=== PATIENT | female | born 1980 | race American Indian/Alaskan Native ===

== ENCOUNTER 2017-08-11 11:25 | Emergency (ER) | payer OTHER ==
[2017-08-11 11:42] VITALS: O2SAT 98
--- NOTE | 2017-08-11 12:35 | C.PDOC ---
History Of Present Illness 37 y/o female with hx newly diagnosed lupus, (not on any medications), vertigo, asthma and eczema, c/o diffuse myalgias yesterday, and today with roller coaster feeling in head, off balance with ambulation, and fell today. did not hurt herself or hit head when she fell. . pt sts it does not feel like her usual no ocp. vertigo. pt also c/o left sided headache in forehead area, with photophobia; pt reports similar headaches in past, not as intense. pt also c/o pain in left leg today, feels like cramps per patient. . denies cp and sob. Time Seen by Provider: 08/11/17 11:59 Chief Complaint (Nursing): Dizziness/Lightheaded History Per: Patient History/Exam Limitations: no limitations Onset/Duration Of Symptoms: Days Current Symptoms Are (Timing): Still Present Activity At Onset Of Symptoms: Standing Past Medical History Reviewed: Historical Data, Nursing Documentation, Vital Signs Vital Signs: Last Vital Signs Temp 98.6 F 08/11/17 13:53 Pulse 81 08/11/17 13:53 Resp 16 08/11/17 13:53 BP 112/79 08/11/17 13:53 Pulse Ox 98 08/11/17 18:35 - Medical History PMH: Asthma Surgical History: No Surg Hx Family History: States: No Known Family Hx - Social History Hx Tobacco Use: No Hx Alcohol Use: Yes Hx Substance Use: No - Immunization History Hx Tetanus Toxoid Vaccination: No Hx Influenza Vaccination: No Hx Pneumococcal Vaccination: No Review Of Systems Constitutional: Negative for: Fever, Chills Eyes: Positive for: Vision Change (photophobia) ENT: Negative for: Throat Pain Cardiovascular: Negative for: Chest Pain, Palpitations Respiratory: Negative for: Shortness of Breath Musculoskeletal: Positive for: Leg Pain, Other (Myalgia) Skin: Negative for: Rash Neurological: Positive for: Headache, Dizziness. Negative for: Weakness, Numbness, Confusion Physical Exam - Physical Exam Additional Physical Exam Comments: Constitutional: No acute distress. WDWN. Head: Normocephalic. Tenderness to left forehead Eyes: PERRL. EOMI. no nystagmus ENT: Moist mucous membranes. Neck: Supple. Cardiovascular: Regular rate and rhythm. Chest: No tenderness. Respiratory: Clear to auscultation bilaterally. GI: Soft. Nontender. Nondistended. Normoactive bowel sounds. No rebound. No guarding. Back: No CVA and no mid-line tenderness. Musculoskeletal: no swelling of extremities. +left calf tenderness Skin: No rash. Neurologic: Alert and oriented,normal cranial nerves. Normal motor strength, normal sensation. . Slightly unsteady when standing. ED Course And Treatment - Laboratory Results Result Diagrams: 08/11/17 12:48 08/11/17 12:48 O2 Sat by Pulse Oximetry: 98 (RA) Pulse Ox Interpretation: Normal Medical Decision Making Medical Decision Making: pt with unilateral headache, and dizziness; eval with head ct, labs, reglan and re-assess. get doppler for left leg pain. 220 pm pt reports headache decreased, dizziness resolved, steady gait. head ct neg , doppler neg for dvt. will give toradol and re-eval. 320 pm pt feeling well after toradol, no more headache, no dizziness, wants to go home, will d/c, recommend neuro outpatient f/u. Disposition Counseled Patient/Family Regarding: Studies Performed, Diagnosis - Disposition Referrals: Oswald Almanza MD [Staff Provider] - Disposition: HOME/ ROUTINE Disposition Time: 15:24 Condition: IMPROVED Additional Instructions: Please follow up with your pmd and neurologist Dr Almanza. Take Tylenol or Ibuprofen for pain, Meclizine for dizziness. Return to ER for any worsening symptoms. Instructions: Migraine Headache (ED), Dizziness (ED) Forms: [facility] (Macedonian), General Discharge Instructions - Clinical Impression Clinical Impression: Dizziness, Migraine - PA / MONITOR TECH / Resident Statement MD/DO has reviewed & agrees with the documentation as recorded. - Scribe Statement The provider has reviewed the documentation as recorded by the Stefibjeanne Marcum All medical record entries made by the Jake were at my direction and personally dictated by me. I have reviewed the chart and agree that the record accurately reflects my personal performance of the history, physical exam, medical decision making, and the department course for this patient. I have also personally directed, reviewed, and agree with the discharge instructions and disposition.
[2017-08-11 12:52] LABS: BASO % 0.5 % (0.0-2.0); EOS # 0.1 K/uL (0.0-0.7); EOS % 2.4 % (0.0-4.0); HEMATOCRIT 41.1 % (34.0-47.0); LYMPH # 0.9 K/uL (1.0-4.3); LYMPH % 17.2 % (20.0-40.0); MEAN CELL VOLUME 82.9 fL (81.0-99.0); MEAN CORPUSCULAR HEMOGLOBIN 27.4 pg (27.0-31.0); MONO # 0.6 K/uL (0.0-0.8); NRBC % 0.1 % (0.0-2.0); RED CELL DISTRIBUTION WIDTH 15.2 % (11.5-14.5); WHITE BLOOD COUNT 5.4 K/uL (4.8-10.8)
[2017-08-11 13:06] LABS: ALKALINE PHOSPHATASE 54 U/L (38-126); ALT/SGPT 37 U/L (9-52); AST/SGOT 23 U/L (14-36); BILIRUBIN,TOTAL 1.1 mg/dL (0.2-1.3); BLOOD UREA NITROGEN 8 mg/dL (7-17); CALCIUM 8.6 mg/dl (8.6-10.4); CARBON DIOXIDE 24 mmol/L (22-30); CHLORIDE 100 mmol/L (98-107); GFR AFRICAN-AMERICAN > 60; GLUCOSE,RANDOM 91 mg/dL (65-105); POTASSIUM 3.9 mmol/L (3.6-5.2); SODIUM 131 mmol/L (132-148); TOTAL PROTEIN 8.8 g/dL (6.3-8.3)
[2017-08-11 13:07] LABS: ALB/GLOB RATIO 0.9 (1.0-2.1)
--- NOTE | 2017-08-11 13:27 | CT ---
PROCEDURE: CT HEAD WITHOUT CONTRAST. HISTORY: left sided headache, photophobia, feels off balance COMPARISON: None available. TECHNIQUE: Axial computed tomography images were obtained through the head/brain without intravenous contrast. Radiation dose: Total exam DLP = 890.65 mGy-cm. This CT exam was performed using one or more of the following dose reduction techniques: Automated exposure control, adjustment of the mA and/or kV according to patient size, and/or use of iterative reconstruction technique. FINDINGS: HEMORRHAGE: No intracranial hemorrhage. BRAIN: No mass effect or edema. No atrophy or chronic microvascular ischemic changes. VENTRICLES: No hydrocephalus. CALVARIUM: Unremarkable. PARANASAL SINUSES: Unremarkable as visualized. No significant inflammatory changes. MASTOID AIR CELLS: Unremarkable as visualized. No inflammatory changes. OTHER FINDINGS: None. IMPRESSION: No acute intracranial pathology identified.
[2017-08-11 13:33] LABS: RBC URINE 2 /hpf (0-3); URINE BACTERIA OCC (<OCC); URINE BILIRUBIN NEGATIVE (NEGATIVE); URINE BLOOD 1+ (NEGATIVE); URINE COLOR Yellow (YELLOW); URINE GLUCOSE (UA) NORMAL (Normal); URINE KETONE NEGATIVE (NEGATIVE); URINE LEUKOCYTE ESTERASE TRACE Leu/uL (Negative); URINE PROTEIN NEGATIVE (NEGATIVE); URINE UROBILINOGEN NORMAL mg/dL (0.2-1.0); WBC URINE 1 /hpf (0-5)
[2017-08-11 13:54] VITALS: BP 112/79; PULSE 81; RESP 16; TEMP 98.6
--- NOTE | 2017-08-11 14:01 | VASCLAB ---
PROCEDURE: Left Lower Extremity Venous Duplex Exam. HISTORY: left calf pain PRIORS: None. TECHNIQUE: Left common femoral, femoral, popliteal and posterior tibial, peroneal and great saphenous veins were evaluated. Flow was assessed with color Doppler, compressibility, assessment of phasic flow and augmentation response. Report prepared by SONYA Fuentes, RVT FINDINGS: LEFT: 1. Common Femoral Vein: 1.1. Compressibility - Fully compressible: Thrombus - None : Flow - Phasic: Augmentation -Normal: Reflux - None. 2. Femoral Vein: 2.1. Compressibility - Fully compressible: Thrombus - None: Flow - Phasic: Augmentation -Normal: Reflux - None. 3. Popliteal Vein: 3.1. Compressibility - Fully compressible: Thrombus - None: Flow - Phasic: Augmentation -Normal: Reflux - None. 4. Posterior Tibial Vein: 4.1. Compressibility - Fully compressible: Thrombus - None: Flow - Phasic: Augmentation -Normal: Reflux - None. 5. Peroneal Vein: 5.1. Compressibility - Fully compressible: Thrombus - None: Flow - Phasic: Augmentation -Normal: Reflux - None. 6. Great Saphenous Vein: 6.1. Compressibility - Fully compressible: Thrombus - None: Flow - Phasic: Augmentation - Normal: Reflux - None. OTHER FINDINGS: IMPRESSION: No evidence of deep or superficial vein thrombosis of the left lower extremity with excellent venous flow. Normal valve function noted of the left side. Normal venous flow noted in the right common femoral vein.
== END 2017-08-11 15:34 | disposition home or self-care (01) ==
LOC: C.ER 11:25
DX: G43.909 Migraine, unspecified, not intractable, without status migrainosus (principal); R42 Dizziness and giddiness; M32.9 Systemic lupus erythematosus, unspecified
CPT/HCPCS: 70450; 80053; 81001; 84703; 85025; 93971; 96374; 99285; J1885; J2765

== ENCOUNTER 2018-07-08 10:21 | Emergency (ER) | payer OTHER ==
[2018-07-08 10:29] VITALS: BMI 48.2
[2018-07-08 10:30] VITALS: TEMP 98.1; O2SAT 100
[2018-07-08 11:37] LABS: HCG,QUALITATIVE URINE NEGATIVE (NEGATIVE)
[2018-07-08 11:41] LABS: SQUAMOUS EPITHIAL 7 /hpf (0-5); URINE BILIRUBIN NEGATIVE (NEGATIVE); URINE BLOOD NEGATIVE (NEGATIVE); URINE CLARITY Hazy (Clear); URINE COLOR Yellow (YELLOW); URINE GLUCOSE (UA) NORMAL (Normal); URINE LEUKOCYTE ESTERASE NEG Leu/uL (Negative); URINE PROTEIN 1+ mg/dL (NEGATIVE); URINE UROBILINOGEN NORMAL mg/dL (0.2-1.0)
[2018-07-08] MEDS ORDERED: Sodium Chloride 0.9% 1,000 ML IV ONE (11:42)
--- NOTE | 2018-07-08 11:54 | C.PDOC ---
History Of Present Illness 38 y/o female with history of Lupus presents to ED with c/o abdominal pain for 1 month worse today with noticed lump on mid abdomen. Patient reports minimal pain relief with motrin. Patient denies fever, chills, nausea, vomiting, diarrhea, recent travel, dysuria, hematuria or any other complaints at this time. Time Seen by Provider: 07/08/18 11:09 Chief Complaint (Nursing): Abdominal Pain History Per: Patient History/Exam Limitations: no limitations Onset/Duration Of Symptoms: Days Current Symptoms Are (Timing): Still Present Past Medical History Reviewed: Historical Data, Nursing Documentation, Vital Signs Vital Signs: Last Vital Signs Temp 98.1 F 07/08/18 10:26 Pulse 76 07/08/18 10:26 Resp 18 07/08/18 10:26 BP 133/83 07/08/18 10:26 Pulse Ox 100 07/08/18 10:26 - Medical History PMH: Asthma Surgical History: No Surg Hx Family History: States: No Known Family Hx - Social History Hx Tobacco Use: No Hx Alcohol Use: Yes Hx Substance Use: No - Immunization History Hx Tetanus Toxoid Vaccination: No Hx Influenza Vaccination: No Hx Pneumococcal Vaccination: No Review Of Systems Constitutional: Negative for: Fever, Chills Cardiovascular: Negative for: Chest Pain Respiratory: Negative for: Cough, Shortness of Breath Gastrointestinal: Positive for: Abdominal Pain. Negative for: Nausea, Vomiting, Diarrhea Genitourinary: Negative for: Dysuria, Hematuria Skin: Negative for: Rash Physical Exam - Physical Exam Appears: Non-toxic, No Acute Distress Skin: Warm, Dry, No Rash Head: Atraumatic, Normacephalic Eye(s): bilateral: Normal Inspection Oral Mucosa: Moist Neck: Normal ROM, Supple Cardiovascular: Rhythm Regular Respiratory: Normal Breath Sounds, No Rales, No Rhonchi, No Wheezing Gastrointestinal/Abdominal: Bowel Sounds, Soft, No Guarding, No Rebound, Hernia (above umbilicus tender on palpation, reduceable) Back: No CVA Tenderness Neurological/Psych: Oriented x3, Normal Speech, Normal Cognition ED Course And Treatment - Laboratory Results Result Diagrams: 07/08/18 11:55 07/08/18 11:55 O2 Sat by Pulse Oximetry: 100 (RA) Pulse Ox Interpretation: Normal Medical Decision Making Medical Decision Making: Plan: CT abd/pelvis w/o contrast, IV fluids IMPRESSION: Hepatomegaly. There is a small fat containing umbilical hernia and slightly larger more inferior ventral wall hernia also containing fat. Urinary bladder incompletely distended which in presumably accounts for thick- walled appearance however correlation with urinalysis recommended to exclude cystitis. Labs unremarkable. Progress: 01:45pm- Discussed results with patient, agrees to follow up with PMD in 2 days for possible surgery referral. Patient still c/o pain but decline pain medication, states she will take Pain medication she has at home. Disposition Counseled Patient/Family Regarding: Studies Performed, Diagnosis, Need For Followup - Disposition Disposition: HOME/ ROUTINE Disposition Time: 14:02 Condition: STABLE Additional Instructions: AURORA ROSENBERG, thank you for letting us take care of you today. Your provider was Ekaterina Schroeder MD and you were treated for LUMP ON STOMACH. The emergency medical care you received today was directed at your acute symptoms. If you were prescribed any medication, please fill it and take as directed. It may take several days for your symptoms to resolve. Return to the Emergency Department if your symptoms worsen, do not improve, or if you have any other problems. Please contact your doctor for follow up appointment for further evaluation including possible referral to a surgeon. Bring any paperwork you were given at discharge with you along with any medications you are taking to your follow up visit. Our treatment cannot replace ongoing medical care by a primary care provider outside of the emergency department. Thank you for allowing the [facility] team to be part of your care today. Instructions: Abdominal Hernia (DC) Forms: [facility] (Maldivian), General Discharge Instructions - POA Present On Arrival: None - Clinical Impression Clinical Impression: Hernia of abdominal wall - Scribe Statement The provider has reviewed the documentation as recorded by the Jake Marcum All medical record entries made by the Stefibjeanne were at my direction and personally dictated by me. I have reviewed the chart and agree that the record a ccurately reflects my personal performance of the history, physical exam, medical decision making, and the department course for this patient. I have also personally directed, reviewed, and agree with the discharge instructions and disposition.
[2018-07-08 12:06] LABS: BASO % 0.9 % (0.0-2.0); EOS # 0.1 K/uL (0.0-0.7); EOS % 2.6 % (0.0-4.0); HEMOGLOBIN 12.6 g/dL (11.0-16.0); LYMPH # 1.4 K/uL (1.0-4.3); LYMPH % 30.6 % (20.0-40.0); MEAN CELL VOLUME 84.9 fL (81.0-99.0); MEAN PLATELET VOLUME 8.9 fL (7.2-11.7); MONO # 0.4 K/uL (0.0-0.8); MONO % 8.5 % (0.0-10.0); NEUT # 2.7 K/uL (1.8-7.0); NEUT % 57.4 % (50.0-75.0); NRBC % 0.1 % (0.0-2.0); RBC 4.5 Mil/uL (3.80-5.20); RED CELL DISTRIBUTION WIDTH 15.5 % (11.5-14.5); WHITE BLOOD COUNT 4.7 K/uL (4.8-10.8)
[2018-07-08 12:23] LABS: ALB/GLOB RATIO 1.2 (1.0-2.1); ALT/SGPT 26 U/L (9-52); AST/SGOT 19 U/L (14-36); BLOOD UREA NITROGEN 10 mg/dL (7-17); CALCIUM 8.7 mg/dl (8.6-10.4); GFR NON-AFRICAN AMERICAN > 60; LIPASE 18 U/L (23-300)
[2018-07-08] MEDS ORDERED: Sodium Chloride 0.9% 1,000 ML ONE (12:51)
--- NOTE | 2018-07-08 13:22 | CT ---
Date of service: 07/08/2018 PROCEDURE: CT Abdomen and Pelvis. HISTORY: .Abdominal pain COMPARISON: Comparison made with MRI of the abdomen 07/07/2013 TECHNIQUE: Contiguous axial images of the abdomen and pelvis. Oral contrast was administered. No IV contrast given. Coronal and Sagittal reformats generated. Radiation dose: Total exam DLP = 1113.94 mGy-cm. This CT exam was performed using one or more of the following dose reduction techniques: Automated exposure control, adjustment of the mA and/or kV according to patient size, and/or use of iterative reconstruction technique. FINDINGS: LOWER THORAX: Heart size is borderline/mildly enlarged. No significant pericardial effusion. Small hiatal hernia. Lung bases clear. No infiltrate effusion or basilar pneumothorax. LIVER: Liver is enlarged measuring nearly 20 cm in CC dimension. No obvious hepatic mass or collection seen on this noncontrast exam.. GALLBLADDER AND BILE DUCTS: Gallbladder physiologically distended. No evidence of intraluminal gallbladder calculi PANCREAS: Unremar pancreas is unremarkable without masses collections calcifications or significant ductal dilatation. SPLEEN: Unremarkable. No splenomegaly. ADRENALS: No adrenal lesions KIDNEYS AND URETERS: Kidneys demonstrate relatively symmetric size. No evidence of nephrolithiasis or hydro nephrosis. BLADDER: Urinary bladder is incompletely distended which presumably accounts for thick-walled appearance however correlation with urinalysis recommended to exclude cystitis. No evidence of intraluminal gallbladder calculi. REPRODUCTIVE: The uterus appears unremarkable. APPENDIX: Normal appendix. BOWEL: Unremarkable. No obstruction. No gross mural thickening. Evaluation of the bowel is somewhat limited due to the lack of oral contrast material. The stomach is incompletely distended. Visualized loops of small bowel exhibit normal contour and caliber. No evidence of acute mechanical small bowel obstruction. Stool and air seen throughout the large bowel. No definitive evidence of mural wall thickening. PERITONEUM: Unremarkable. No fluid collection. No free air. There is a small to medium sized fat containing umbilical hernia.. Additionally, there is a slightly smaller ventral wall hernia slightly more superiorly located. There also appears to be a at tiny left fat containing inguinal hernia. LYMPH NODES: Unremarkable. No enlarged lymph nodes. VASCULATURE: Unremarkable. No aortic aneurysm. No aortic atherosclerotic calcification or mural plaque present. BONES: Mild multilevel degenerative spondylosis of the lower thoracic and to a lesser degree lumbar spine. OTHER FINDINGS: None. IMPRESSION: Hepatomegaly. There is a small fat containing umbilical hernia and slightly larger more inferior ventral wall hernia also containing fat. Urinary bladder incompletely distended which in presumably accounts for thick-walled appearance however correlation with urinalysis recommended to exclude cystitis.
[2018-07-08 14:16] VITALS: BP 125/83; PULSE 66; RESP 16
== END 2018-07-08 14:04 | disposition home or self-care (01) ==
LOC: C.ER 10:21
DX: K43.9 Ventral hernia without obstruction or gangrene (principal)
CPT/HCPCS: 74176; 80053; 81001; 83690; 84703; 85025; 96360; 99285; J7030

== ENCOUNTER 2018-10-22 11:03 | Emergency (ER) | payer OTHER ==
[2018-10-22 11:03] VITALS: BMI 48.2
[2018-10-22 11:07] VITALS: RESP 20
--- NOTE | 2018-10-22 11:45 | C.PDOC ---
History Of Present Illness 38 y/o obese female with lupus, on plaquenil and other medications, c/o right lower back pain for last few months that has been controlled by several doses of motrin per day. no hx trauma to back. pt has had vomiting and diarrhea this week, now tolerating po and hasn't take Motrin recently and sts pain in back worse, especially after massage. denies any numbness or tingling, no saddle anesthesia, no bladder or bowel dysfunction. Time Seen by Provider: 10/22/18 11:27 Chief Complaint (Nursing): Back Pain History Per: Patient History/Exam Limitations: no limitations Onset/Duration Of Symptoms: Days (months, worse last few days) Current Symptoms Are (Timing): Worse Quality Of Discomfort: "Pain" Severity: Moderate Previous Symptoms: Back Pain Associated Symptoms: denies: Incontinence, New Weakness, New Numbness Exacerbating Factor(s): Movement Past Medical History Reviewed: Historical Data, Nursing Documentation, Vital Signs Vital Signs: Last Vital Signs Temp 99 F 10/22/18 11:05 Pulse 79 10/22/18 11:05 Resp 20 10/22/18 11:05 BP 108/72 10/22/18 11:05 Pulse Ox 99 10/22/18 11:05 - Medical History PMH: Asthma Other PMH: Lupus Family History: States: Unknown Family Hx - Social History Hx Tobacco Use: No Hx Alcohol Use: Yes Hx Substance Use: Yes (marijuana) - Immunization History Hx Tetanus Toxoid Vaccination: No Hx Influenza Vaccination: No Hx Pneumococcal Vaccination: No Review Of Systems Constitutional: Negative for: Fever, Chills Cardiovascular: Negative for: Chest Pain Respiratory: Negative for: Cough Gastrointestinal: Positive for: Nausea, Vomiting (resolving), Diarrhea (resolving) Genitourinary: Negative for: Dysuria, Incontinence Musculoskeletal: Positive for: Back Pain Skin: Negative for: Rash, Bruising Neurological: Negative for: Weakness, Numbness Physical Exam - Physical Exam Appears: Non-toxic, No Acute Distress, Other (uncomfortable with movement) Skin: Warm, Dry Head: Atraumatic, Normacephalic Gastrointestinal/Abdominal: Soft, No Tenderness, No Distention, No Guarding Back: No CVA Tenderness, No Vertebral Tenderness, Paraspinal Tenderness (right lumbar) Extremity: Normal ROM, No Tenderness, No Swelling Neurological/Psych: Oriented x3, Normal Speech, Normal Cognition, Normal Motor, Normal Sensation ED Course And Treatment O2 Sat by Pulse Oximetry: 99 Medical Decision Making Medical Decision Making: right lumbar pain for months, worse last few days since not taking motrin due to stomach bug. no neurological findings. upreg neg. given toradol and lidoderm patch. d/c with zofran and muscle relaxant. pt has appt for thursday with her physician. Disposition Counseled Patient/Family Regarding: Diagnosis, Need For Followup, Rx Given - Disposition Disposition: HOME/ ROUTINE Disposition Time: 11:55 Condition: IMPROVED Additional Instructions: Remove patch in 12 hours. Take anti-nausea medication up to three times a day if needed; Resume taking Motrin. Take muscle relaxant at bedtime, and during day up to 3 times per day, if you are able to - makes you sleepy. Follow up with your doctor on Thursday as scheduled. Return to ER for any worse symptoms. Prescriptions: Cyclobenzaprine [Cyclobenzaprine HCl] 10 mg PO Q8 #9 tab Ondansetron ODT [Zofran ODT] 4 mg PO TID #12 odt Instructions: Low Back Pain (DC) Forms: [facility] (Citizen [place]), General Discharge Instructions - Clinical Impression Clinical Impression: Low back pain
[2018-10-22] MEDS ORDERED: Lidocaine 5% Patch TD ONE (11:52)
[2018-10-22] MEDS ORDERED: Lidocaine 5% Patch TD STA (11:54)
[2018-10-22 12:19] VITALS: BP 106/83; PULSE 71; TEMP 98.7
[2018-10-25 02:39] VITALS: O2SAT 99
== END 2018-10-22 12:19 | disposition home or self-care (01) ==
LOC: C.ER 11:03
DX: M54.5 Low back pain (principal)
CPT/HCPCS: 81025; 96372; 99284; J1885